=== PATIENT | male | born 1945 | race Caucasian/White ===

== ENCOUNTER → 2016-11-17 | Outpatient (CLI) | payer OTHER ==
[~2016-11-17] MED LIST: ALLERGY RELIEF10 M2 PO; CHANTIX1 DOSE-PAC PO; FAMOTIDINE PO; PRILOSEC PO; PRILOSEC20 MG PO; PRILOSEC40 MG PO; PROTONIX PO; TYLENOL ARTHRITIS PO; TYLOX 5-500 CA1 EACH
--- NOTE | ~2016-11-17 | CT2 ---
[facility] A Service of [facility] RADIOLOGY TEXT RESULTS PATIENT: LENNOX SONI LOCATION: [facility] : 45 UNIT #: [id number] AGE: [address]: Federico Mcneal MD SEX: M ORDER DR: [id number] [facility]. [place], [place] [address] [id number] O MR#: [id number] Acc #: [id number] NAME: LENNOX SONI : 1945 SEX: M STUDY DATE/TIME: 11/17/2016 9:01 UNIT: [facility] ROOM: STUDY DESCRIPTION: CT Abd and Pelv W Cont Attending Physician: Federico Mcneal M.D. Referring Physician: Federico Mcneal M.D. Ordering Physician: Federico Mcneal M.D. Primary Care Physician: Federico Mcneal M.D. MEDICAL IMAGING REPORT This report is preliminary unless electronic signature is present EXAM CT abdomen and pelvis with contrast. INDICATIONS Follow up right iliac bone lesion on previous CT. PROCEDURE Contrast-enhanced CT of the abdomen and pelvis. This CT exam was performed with one or more of the following radiation dose reduction techniques: automatic exposure control, adjustment of mA and/or kV according to patient size, and iterative reconstruction. COMPARISON 02/13/2016 FINDINGS ABDOMEN WITH CONTRAST: The included lung bases are clear. The liver, spleen, adrenal glands, pancreas and gallbladder unremarkable. Bowel loops are nondilated. Extensive uncomplicated sigmoid diverticulosis. Appendix is normal. There is a 5-mm nonobstructing calculus in the left kidney. PELVIS WITH CONTRAST: Prostate measures 6.2 cm. No pelvic mass. No aggressive-appearing bone lesion. Approximately 4-mm lucent lesion in the right iliac bone is stable. IMPRESSION 1. No acute findings. 2. Stable 4-mm lucent lesion, right iliac bone, indeterminate, but stability favors a benign process. No other aggressive- appearing bone lesions are seen. 3. 5-mm nonobstructing calculus, left kidney. [facility] A Service of [facility] RADIOLOGY TEXT RESULTS PATIENT: LENNOX SONI LOCATION: [facility] : 45 UNIT #: [id number] AGE: [address]: Federico Mcneal MD SEX: M ORDER DR: 4. Prostatomegaly. Dictated by... Farhad Aviles M.D. THIS IS AN ELECTRONICALLY VERIFIED REPORT Farhad Aviles M.D. at 11/18/2016 8:28 AM ASHWINI/gary TD: 11/17/2016 17:14 JOB #: [id number] MEDICAL IMAGING REPORT Page 1 of 1 COPY
--- NOTE | ~2016-11-17 | CT57 ---
[facility] A Service of [facility] RADIOLOGY TEXT RESULTS PATIENT: LENNOX SONI [facility] : [facility] UNIT #: [id number] AGE: [address]: Federico Mcneal MD SEX: M ORDER DR: [id number] [facility]. [place], [place] [address] [id number] O MR#: [id number] Acc #: [id number] NAME: LENNOX SONI : 1945 SEX: M STUDY DATE/TIME: 11/17/2016 8:58 UNIT: [facility] ROOM: STUDY DESCRIPTION: CT Chest Wo Cont Attending Physician: Federico Mcneal M.D. Referring Physician: Federico Mcneal M.D. Ordering Physician: Federico Mcneal M.D. Primary Care Physician: Federico Mcneal M.D. MEDICAL IMAGING REPORT This report is preliminary unless electronic signature is present EXAM CT chest without contrast. INDICATIONS Pulmonary nodule followup. PROCEDURE Unenhanced CT of the chest. This CT exam was performed with one or more of the following radiation dose reduction techniques: automatic exposure control, adjustment of mA and/or kV according to patient size, and iterative reconstruction. COMPARISON 02/13/2016 FINDINGS Significant emphysema. 10-mm spiculated nodule in the left lower lobe. This level was not included on the previous CT. There is a 5-mm nodule in the left lower lobe that is more dense than on the prior, possibly related to slice selection. No other pulmonary nodules. No adenopathy. No acute findings in the included upper abdomen. There is a 7-mm nonobstructing calculus in the left kidney. No aggressive-appearing bone lesion. IMPRESSION 1. Significant emphysema. 2. 10-mm spiculated nodule in the left lower lobe. This level was not included on the previous CT. It is just at size resolution for PET, and recommend PET/CT for evaluation of malignant potential. 3. 4-mm nodule in the posterolateral left lower lobe similar in size to the previous CT, but more dense. Possibly related to differences in slice selection. Recommend attention to this nodule on future STS. [facility] A Service of [facility] RADIOLOGY TEXT RESULTS PATIENT: LENNOX SONI LOCATION: [facility] : 45 UNIT #: [id number] AGE: [address]: Federico Mcneal MD SEX: M ORDER DR: studies. 4. 7-mm nonobstructing calculus in the left kidney. Dictated by... Farhad Aviles M.D. THIS IS AN ELECTRONICALLY VERIFIED REPORT Farhad Aviles M.D. at 11/18/2016 8:27 AM Danette TD: 11/17/2016 16:31 JOB #: [id number] MEDICAL IMAGING REPORT Page 1 of 1 COPY
[2016-11-17 08:40] LABS: POC - CREATININE 0.84 mg/dL (0.64-1.27); POC - GFR >60.0 mL/min (>60)
== END | disposition home or self-care (01) ==
LOC: CCAT 11-14 07:40
PROVIDERS: Internal Medicine
DX: R91.1 Solitary pulmonary nodule (principal); M89.9 Disorder of bone, unspecified; J43.9 Emphysema, unspecified; R91.8 Other nonspecific abnormal finding of lung field; N20.0 Calculus of kidney; N40.0 Benign prostatic hyperplasia without lower urinary tract symptoms
CPT/HCPCS: 71250; 74177; 82565; Q9967